=== PATIENT | female | born 1990 | race Caucasian/White ===

== ENCOUNTER 2024-06-09 11:04 | Emergency (ER) | payer OTHER, MEDICAID, SELFPAY ==
--- NOTE | ~2024-06-09 | CT_ITS ---
CLINICAL HISTORY: Fall from 3 steps, pain right lateral neck CT cervical spine without contrast Comparison: None Findings: Cervical spine straightening. Normal alignment without acute fracture. Mild right maxillary sinus mucosal thickening. Unremarkable visualized brain and neck soft tissues. IMPRESSION: No acute fracture. This document has been electronically signed by: Skye Ospina MD on 06/09/2024 13:03:01
--- NOTE | ~2024-06-09 | XR_ITS ---
CLINICAL HISTORY: fall, pain 3 view, pelvis and left hip Comparison: None Findings: The bones are intact. No significant arthritic change. The soft tissues are unremarkable. IMPRESSION: No acute findings. This document has been electronically signed by: Skye Ospina MD on 06/09/2024 13:06:46
--- NOTE | ~2024-06-09 | XR_ITS ---
CLINICAL HISTORY: fall, pain 3 view right shoulder Comparison: None Findings: Bones intact. No dislocations. No significant loss of joint space or osteophytes. No erosions. No radiopaque foreign body. IMPRESSION: 1. No acute findings This document has been electronically signed by: Skye Ospina MD on 06/09/2024 13:05:39
--- NOTE | 2024-06-09 11:21 | ED_ITS ---
HPI - General Adult General Chief complaint: Fall Stated complaint: work inj, shoulder pain Time Seen by Provider: 06/09/24 14:13 History of Present Illness HPI narrative: Patient complains of pain in right shoulder as well as left gluteal area after a fall at work yesterday She was standing on the 3rd rung of a ladder and fell over landing on her right shoulder, and hit her left gluteal area on a shelf There is some paresthesia or tingling radiating down the right arm from the shou lder, but no loss of muscle strength no loss of sensation She has no head injury no headache, she was not dizzy before the fall, she has no chest pain no abdominal pain no numbness or weakness, no changes to bowel or bladder no incontinence no dysuria Related Data Previous Rx's ?Medication ?Instructions ?Recorded acetaminophen 500 mg tablet 1,000 mg (2 x 500 mg) PO QID PRN 06/09/24 pain #30 tabs ibuprofen 600 mg tablet 600 mg PO Q6H pain #20 tabs 06/09/24 Allergies Allergy/AdvReac Type Severity Reaction Status Date / Time No Known Allergies Allergy Verified 06/09/24 11:23 [facility] Past Medical History Source: nursing notes reviewed Social History Social History Advance Directives: No Advance Directives Information Provided: No Physical Exam ED Vital Signs: Vital Signs - 24 hr 06/09/24 11:22 Pulse Rate 83 Respiratory Rate 18 Blood Pressure 143/79 H Pulse Oximetry 97 Oxygen Delivery Method Room Air BMI result Body Mass Index 40.6 General appearance comfortable no distress Head is normocephalic atraumatic No evidence of any trauma to the face no raccoon eyes no cheng sign The neck had right sided tenderness on the lateral neck as well as the trapezius, there was no midline tenderness, range of motion in the neck was good Clear to auscultation bilateral, no pain with a deep breath, no tenderness to ribs or sternum, no bruising or haile on the chest wall Abdomen soft nontender Extremities the right shoulder is held in internal rotation and has limited external rotation limited abduction and limited extension limited by pain, no deformity or swelling, neurovascular intact distal The rest of the right arm exam is normal with normal pulse and normal sensation in the fingers good movement in elbow and wrist and hand The back exam there is left gluteal tenderness, there is no focal bony tenderness in the back of the lower or upper Left hip has full range of motion and no tenderness over the hip or pelvis Neuro motor is 5/5 x4, sensation is intact and symmetrical distal extremities, interaction comprehension expression all normal Course Course Course Narrative: This is an RME performed by Alexi Beck CNP: Additional HPI, ROS, PE not included below will be deferred to primary provider. Patient is a 34-year-old female who presents emergency department for evaluation of a work-related injury. She was working yesterday at [employer], she was standing 3 steps up on a ladder, she fell landing onto her right shoulder on the floor resulting in pain to the right lateral neck and right shoulder, her left hip hit a shelf near the floor resulting in pain when she is flexing the hip. Denies head strike or loss of consciousness. Denies anticoagulants Plan: CT cervical spine, XR right shoulder, XR left hip Patient with work-related slip and fall down several rungs of the ladder onto the floor with right shoulder and left gluteal pain CT scan of cervical spine was negative for acute fracture, x-rays of left hip and pelvis negative for fracture, x-rays right shoulder negative for fracture Right shoulder did have limited range of motion as well as diffuse tenderness so she likely sprained her shoulder and is advised that she may need orthopedic follow-up Left gluteal area is likely just mild muscle injury from hitting it on the shelf, she had full range of motion in the hip and leg on the left side and ambulates easily She will be referred to work connection for work related injury of right shoulder and left gluteal area and patient is disc Medical Decision Making Lab Data Labs: Lab Results 06/09/24 Range/Units 11:34 Urine Test NEGATIVE (NEGATIVE) Discharge Plan Discharge Clinical Impression: Sprain of right shoulder, Muscle strain Patient Disposition: Home, Self-Care Additional Instructions: Follow with work connection for clearance to return to work for full duty, as well as further evaluation of right shoulder injury You can use Tylenol or Motrin for pain Return to the ER any time any worse condition or any concerns Prescriptions: New acetaminophen 500 mg tablet 1,000 mg PO QID PRN (Reason: pain) Qty: 30 0RF ibuprofen 600 mg tablet 600 mg PO Q6H Qty: 20 0RF Referrals: [facility] [Provider Group] ( employee fell off ladder injuring right shoulder and left hip area) Stand Alone Forms: Work/School Release Print Language: Amharic
[2024-06-09 11:22] VITALS: BP 143/79; PULSE 83; RESP 18; O2SAT 97; BMI 40.6
[2024-06-09 11:41] LABS: UPreg QC Valid YES; Urine Pregnancy NEGATIVE (NEGATIVE)
[2024-06-09 17:36] VITALS: BP 143/79; PULSE 83; RESP 18; TEMP -17.7; TEMP 0; O2SAT 97
== END 2024-06-09 17:36 | disposition home or self-care (01) ==
PROVIDERS: Nurse Practitioner Family; Emergency Provider Emergency Medicine; PCP Internal Medicine
DX: S43.401A Unspecified sprain of right shoulder joint, initial encounter (principal); M25.511 Pain in right shoulder; R10.2 Pelvic and perineal pain; M54.2 Cervicalgia; W11.XXXA Fall on and from ladder, initial encounter; Y93.9 Activity, unspecified; Y92.9 Unspecified place or not applicable; Y99.0 Civilian activity done for income or pay
CPT/HCPCS: 72125; 73030; 73502; 81025; 99282; 99284

== ENCOUNTER → 2024-06-09 11:26 | Outpatient (BNV) | payer MEDICAID, SELFPAY | PROVIDERS: Visit Provider Radiology Diagnostic Radiology | DX: M54.2 Cervicalgia (principal); M25.552 Pain in left hip; R10.2 Pelvic and perineal pain; M25.511 Pain in right shoulder; W10.8XXA Fall (on) (from) other stairs and steps, initial encounter | CPT/HCPCS: 72125; 73030; 73502 ==

== ENCOUNTER → 2024-06-14 13:31 | Outpatient (BNVA) | payer OTHER, SELFPAY | PROVIDERS: PCP Internal Medicine; Visit Provider Physician Assistant | DX: Z09 Encounter for follow-up examination after completed treatment for conditions other than malignant neoplasm (principal); M54.2 Cervicalgia; S43.51XA Sprain of right acromioclavicular joint, initial encounter; W11.XXXA Fall on and from ladder, initial encounter; M25.552 Pain in left hip | CPT/HCPCS: 99204 ==

== ENCOUNTER → 2024-06-21 09:59 | Outpatient (BNVA) | payer OTHER, SELFPAY | PROVIDERS: PCP Internal Medicine; Visit Provider Physician Assistant | DX: M54.2 Cervicalgia (principal); S43.51XD Sprain of right acromioclavicular joint, subsequent encounter; W11.XXXD Fall on and from ladder, subsequent encounter; M25.552 Pain in left hip | CPT/HCPCS: 99214 ==

== ENCOUNTER → 2024-07-04 09:32 | Outpatient (BNVA) | payer OTHER, SELFPAY | PROVIDERS: PCP Internal Medicine; Visit Provider Physician Assistant | DX: M54.2 Cervicalgia (principal); S43.51XD Sprain of right acromioclavicular joint, subsequent encounter; W11.XXXD Fall on and from ladder, subsequent encounter | CPT/HCPCS: 99214 ==

== ENCOUNTER 2024-07-17 11:03 | Outpatient (RCR) | payer OTHER, SELFPAY ==
--- NOTE | 2024-06-19 15:48 | MHC.PT.EP ---
[facility] [place] Office [place] Office [place] Office [address] Toma Leyva [address] [phone] F: [phone] F: [phone] F: [phone] F: [phone] Physical Therapy Plan of Care Date of Evaluation: 06/19/24 Date of Surgery: n/a Diagnosis: cervicalgia and R shoulder pain Assessment: Pt is a 34 yo F who has acute neck and R shoulder pain s/p a fall from a ladder at work, patient has no acute fractures. Patient works at [employer], lives with and 2 children, and was independent with all ADLs. Patient is now unable to perform window assembler, sleep comfortably, nor don/doff clothes due to increased pain. Since mechanical fall 06/08/24, patient has not returned to work. Patient has decreased ROM, decreased shoulder and medical supervisor strength, mild swelling, increased pain intensity, and poor posture awareness. Patient is a good candidate for physical therapy due to PLOF, age, and no comorbidities. Patient will benefit from physical therapy 2x a week for 4 weeks to focus on gentle ROM, shoulder/periscapular strengthening, education regarding body mechanics and postural awareness. Therapy may include strengthening, mobility, taping, STM/IASTM, and modalities as needed. Frequency and Duration: The patient will be seen 2x / 4 week Short Term Goals: Pt will be Independent with HEP Pt will have improved R medical supervisor strength R=L Pt will be able to have increased R shoulder abd and flexion AROM with decreased pain to at least 90* Pt will have increased cervical flexion by at least 20 degrees Track Repairer Goals: Pt will demonstrate statistically significant improved function demonstrated by an increase score of the NDI by at least 6 points Pt will demonstrate proper body mechanics and reduced pain to be able to sleep through the night without waking Pt will demonstrate full shoulder ROM and strength to perform cooking and cleaning Pt will demonstrate full cervical ROM to 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 Manual therapy to restore motion and function. Therapeutic exercise to improve strength and flexibility. Neuromuscular re-education for posture and balance. Therapeutic activities to return to functional activities of daily living. Electronically signed by: Zahra Franco, PT, DPT Please sign and return to therapist. Thank you for your referral.
--- NOTE | 2024-09-05 11:25 | MHC.PT.DC ---
[facility] [place] Office [place] Office [place] Office [address] Toma Leyva [address] [phone] F: [phone] F: [phone] F: [phone] F: [phone] Physical Therapy Discharge Report Diagnosis: cervicalgia and R shoulder pain Date of Surgery: DOI 06/08/24 Date of Evaluation: 06/19/24 Date of Discharge: 09/05/24 Treatments to Date: 8 Cancellations to Date: 4 No Shows to Date: 1 Discharge Status: Visit Non-compliance Discharge Summary: Pt was seen for skilled PT from 06/19/24-07/17/24. Her last attended appointment was 07/17/24. She had 1 no show and 3 cancellations for her last 4 scheduled appointments. She is being D/C from skilled PT as she hasn't attended or called to reschedule in > 30 days. Pt current level of function unknown at this time Electronically signed by: Zahra Franco, PT, DPT Please sign and return to therapist. Thank you for your referral.
== END 2024-09-05 11:25 | disposition home or self-care (01) ==
LOC: HO.PT 11:03
PROVIDERS: PCP Internal Medicine; Visit Provider Physician Assistant
DX: M54.2 Cervicalgia (principal); M25.511 Pain in right shoulder
CPT/HCPCS: 97110; 97140; 97162

== ENCOUNTER → 2024-07-19 10:01 | Outpatient (BNVA) | payer OTHER, SELFPAY | PROVIDERS: PCP Internal Medicine; Visit Provider Physician Assistant | DX: M54.2 Cervicalgia (principal); S43.51XD Sprain of right acromioclavicular joint, subsequent encounter; W11.XXXD Fall on and from ladder, subsequent encounter | CPT/HCPCS: 99213 ==

== ENCOUNTER → 2024-08-02 14:27 | Outpatient (BNVA) | payer OTHER, SELFPAY | PROVIDERS: PCP Internal Medicine; Visit Provider Physician Assistant | DX: M54.2 Cervicalgia (principal); S43.51XD Sprain of right acromioclavicular joint, subsequent encounter; W11.XXXD Fall on and from ladder, subsequent encounter | CPT/HCPCS: 99214 ==

== ENCOUNTER → 2024-08-21 11:01 | Outpatient (BNVA) | payer OTHER, SELFPAY | PROVIDERS: PCP Internal Medicine; Visit Provider Physician Assistant | DX: M54.2 Cervicalgia (principal); S43.51XD Sprain of right acromioclavicular joint, subsequent encounter; W11.XXXD Fall on and from ladder, subsequent encounter | CPT/HCPCS: 99213 ==

== ENCOUNTER 2024-08-21 19:22 | Outpatient (REF) | payer OTHER, SELFPAY ==
--- NOTE | ~2024-08-21 | MR_ITS ---
EXAMINATION: MR SHOULDER, RIGHT CLINICAL INFORMATION: Weakness, rule out rotator cuff tearing. Patient states work injury 06/08/2024 with decreased range of motion. COMPARISON: No prior MRI. Right shoulder radiographs 06/09/2024. TECHNIQUE: Multiplanar multisequence MR imaging of the right shoulder was done without IV contrast. Examination performed on a 1.5 Sandra Siemens unit utilizing standard sequences. FINDINGS: There is mild to moderate motion degradation on multiple pulsing sequences, limiting the sensitivity of the examination. Rotator Cuff and Biceps Tendon: Supraspinatus: There is no discrete tear within the confines of mild motion artifact. There is no tendinous retraction or evidence of full-thickness tear. Insertional aspect of the tendon appears intact. Normal-appearing muscle belly. Infraspinatus: There is a subtle increase focus of T2 signal within the myotendinous junction, suggestive of a mild myotendinous injury (series 14, image 13). Tendon is otherwise grossly intact and normal in signal. Normal muscle belly. Subscapularis: Within confines of motion, tendon appears intact without discrete tear. Normal muscle belly. Teres Minor: Intact and normal in signal. Normal muscle belly. Biceps Long Head: Normally located within the bicipital groove with normal morphology. The tendon within the rotator interval is difficult to assess due to motion and obliquity although appears grossly normal. The biceps anchor appears intact. AC Joint and Acromiohumeral Arch: The AC joint is intact without significant spurring. There is a type II acromion present. There is no supraspinatus outlet stenosis. Glenohumeral Joint and Labrum: There is normal joint fluid within the glenohumeral joint. There are no full-thickness cartilaginous defects within the confines of mild motion artifact. There is normal alignment without significant degenerative arthritis. The labrum appears grossly intact without displaced tear. Osseous Structures: Normal in signal. There is no bone marrow edema to suggest contusion or fracture. There is no abnormal infiltrating signal. Spino-glenoid Notch: Normal. Quadrilateral Space: Normal. Other: Mildly increased signal throughout the subacromial/subdeltoid bursa with a trace amount of fluid, consistent with mild to moderate bursitis. The glenohumeral ligaments appear intact without definite thickening. MR/MR shoulder RT wo con IMPRESSION: 1. Exam somewhat limited by motion artifact on several pulsing sequences. This limits the sensitivity of the examination. 2. Suspect a subtle, mild focal myotendinous injury of the infraspinatus tendon. Rotator cuff tendons are otherwise grossly intact without significant tearing, tendinosis, or tendinous retraction. 3. Grossly normal-appearing AC joint and glenohumeral joint. No definite labral tearing. 4. Mild to moderate subacromial/subdeltoid bursitis. Electronically signed by: Arley Membreno MD 08/22/2024 08:58 AM EDT
== END 2024-08-21 19:23 | disposition home or self-care (01) ==
LOC: HO.MRI 19:22
PROVIDERS: PCP Internal Medicine; Visit Provider Internal Medicine
DX: M25.511 Pain in right shoulder (principal)
CPT/HCPCS: 73221

== ENCOUNTER → 2024-08-21 19:31 | Outpatient (BNV) | payer OTHER, SELFPAY | PROVIDERS: PCP Internal Medicine; Visit Provider Radiology Diagnostic Radiology | DX: M75.01 Adhesive capsulitis of right shoulder (principal) | CPT/HCPCS: 73221 ==

== ENCOUNTER → 2024-08-30 14:19 | Outpatient (BNVA) | payer OTHER, SELFPAY | PROVIDERS: PCP Internal Medicine; Visit Provider Physician Assistant | DX: S43.51XD Sprain of right acromioclavicular joint, subsequent encounter (principal); W11.XXXD Fall on and from ladder, subsequent encounter; M54.2 Cervicalgia | CPT/HCPCS: 99213 ==

== ENCOUNTER → 2024-09-18 14:37 | Outpatient (BNVA) | payer OTHER, SELFPAY | PROVIDERS: Visit Provider Physician Assistant | DX: M75.51 Bursitis of right shoulder (principal); M25.552 Pain in left hip; M54.50 Low back pain, unspecified | CPT/HCPCS: 99213 ==

== ENCOUNTER 2024-09-30 08:31 | Outpatient (AMB) | payer OTHER, SELFPAY ==
--- NOTE | 2024-09-30 08:34 | MHC.OFFVIS ---
Vital Signs 09/30/24 08:36 Height 5 ft 2 in Weight 222 lb BMI 40.6 Intake Visit Reasons: [employer] WC-R shlder injury DOI 06/08/24 Intake Note: Tamika is a 34 year old right hand dominant female who presents as a new patient for a workers comp injury to her right shoulder, DOI 06/08/24. Patient was seen at work connection status post fall at work. She mentions that she slipped on the 3 step and landed on her shoulder. She attended physical therapy with helped however she continues to have ongoing pain. MRI was obtained. Patient reports she is still having pain when she is doing overhead reaching. Her pain and swelling is on the anterior aspect of the shoulder. Patient mentions that she is also having numbness in both hands mainly in the right hand. IMPRESSION: 1. Exam somewhat limited by motion artifact on several pulsing sequences. This limits the sensitivity of the examination. 2. Suspect a subtle, mild focal myotendinous injury of the infraspinatus tendon. Rotator cuff tendons are otherwise grossly intact without significant tearing, tendinosis, or tendinous retraction. 3. Grossly normal-appearing AC joint and glenohumeral joint. No definite labral tearing. 4. Mild to moderate subacromial/subdeltoid bursitis. Molten Iron Pourer Required: Yes Molten Iron Pourer Language: Securities Broker Services: Molten Iron Pourer Present (Ct([id number])) Allergies No Known Allergies Allergy (Verified 09/30/24 08:39) HPI HPI [employer] WC-R shlder injury DOI 06/08/24: Details: 34 year old right hand dominant female who presents as a new patient for a workers comp injury to her right shoulder, DOI 06/08/24. Patient was seen at work connection status post fall at work. She works at a retail store and works stocking shelves. She states she was on a ladder and slipped off the 3rd step and landed on her right shoulder. She states a day after the incident, she was seen in the ED, xrays obtained which were negative for fracture. She was seen at the Work connection who referred her to PT. She states PT has helped with her ROM and strength however she continues to have ongoing pain with reaching overhead, pain that extends from her neck into her shoulder, and reaching behind her back. She was given some work restrictions from the work connection however this has caused her to lose significant amount of hours at work. [facility] Social History (Updated 09/30/24 @ 08:41 by Amrik Norman) Alcohol intake: never Patient Tobacco Use Status: Never used Tobacco Current occupational status: employed Current occupation: [employer]/ right hand dominant Review of Systems Const All systems reviewed & are unremarkable except as noted in HPI and below Physical Exam Vital Signs: BMI result Body Mass Index 40.6 Const General: cooperative and no acute distress Orientation/consciousness: patient oriented x3 Resp Effort & Inspection: normal respiratory effort and able to speak in complete sentences Cardio Peripheral pulses: Peripheral pulses 2+ throughout Neuro General: patient oriented x3 Extrem Other: Right shoulder normal to inspection she has protraction of the right scapula. Full range of motion in all planes. Significant tenderness over the right trapezium muscle into the right side of her neck. Tenderness over the proximal biceps tendon with a positive [place]'s. 5/5 rotator cuff strength. Neurovascularly intact. Office Procedures AMB Joint Injection/Aspiration Joint Injection/Aspiration Primary Site: right shoulder Prep: site was prepped using aseptic technique, ethochloride spray was applied and injection warnings given Injected: 80 mg of, DepoMedrol, with 8 mL of, 1% plain lidocaine and in the subcromial space Approach Used: posterolateral Procedure: The patient tolerated the procedure well and there was some relief with the local anesthesia Coding 79579 - Glenohumeral/Tronchanteric Bursa/Intraarticular Procedure code (CPT) selection complete Results Reviewed Results Reviewed: X-rays of the right shoulder obtained in the emergency department are negative for any acute or chronic abnormalities. MRI right shoulder IMPRESSION: 1. Exam somewhat limited by motion artifact on several pulsing sequences. This limits the sensitivity of the examination. 2. Suspect a subtle, mild focal myotendinous injury of the infraspinatus tendon. Rotator cuff tendons are otherwise grossly intact without significant tearing, tendinosis, or tendinous retraction. 3. Grossly normal-appearing AC joint and glenohumeral joint. No definite labral tearing. 4. Mild to moderate subacromial/subdeltoid bursitis. Assessment & Plan Assessment & Plan (1) Bursitis of right shoulder: Code(s): M75.51 - Bursitis of right shoulder Category: Medical (2) Strain of right trapezius muscle: Code(s): S46.811A - Strain of other muscles, fascia and tendons at shoulder and upper arm level, right arm, initial encounter Category: Medical Plan I discussed with the patient the extent of her injury which has continued to limit her ability to perform normal work functions and also daily activities at home. We discussed options which include continued physical therapy and I did place a new order for this today to work on range of motion periscapular stabilization rotator cuff strengthening and cervical range of motion/stabilization. The extent of her injury has caused her to alter her mechanics causing discomfort not only in the shoulder but extending down the arm. I did recommend a steroid injection to help with her discomfort which she did consent to today. Right shoulder steroid injection performed today which she tolerated well. I did put in place work limitations. She should refrain from overhead reaching activities. She should perform no pushing pulling or carrying greater than 5 lb until I see her back in 6 weeks for re-evaluation, sooner if needed. Orders: Orders PT Evaluation and Treatment Today M75.51 - Bursitis of right shoulder, S46.811A - Strain of other muscles, fascia and tendons at shoulder and upper arm level, right arm, initial encounter Coding Level of Care Code New Pt Level 3 (97986) Complex EM visit Add On G2211 Diagnoses Bursitis of right shoulder M75.51 Strain of right trapezius muscle S46.811A CPT Codes Coding - Joint 7: 92073 - Glenohumeral/Tronchanteric Bursa/Intraarticular ([id number])
[2024-09-30 08:36] VITALS: BMI 40.6
--- OUTSIDE RECORDS SUMMARY | 2024-09-30 08:57 | XMS_ITS | Clinical Summary ---
Author Organization [facility] Address [address] [place] [address] Care Team Providers Care Enzyme Chemist Name Role Phone Petr Sloan MD Primary Care Provider Source Comments PLEASE NOTE, if this patient is a minor, it may be UNLAWFUL to discuss sensitive information that is contained in these records (such as FAMILY PLANNING, MENTAL HEALTH or SUBSTANCE ABUSE) with the minor patient's parent or other person without the patient's specific authorization.[facility] Allergies No known active allergies Medications fluticasone (FLONASE) 50 mcg/actuation nasal spray Place 2 Sprays in both nostrils once daily 16 g 1 4 Active white petrolatum-min eral oiL cream Apply topically as needed for dry skin 198 g 1 4 Active naproxen (NAPROSYN) 250 mg tablet Take 250 mg by mouth 2 (two) times daily with a meal. 5 Active lidocaine (LIDODERM) 5 % patch APPLY 2 PATCHES TOPICALLY DAILY FOR CERVICALGIA LEAVE ON MOST PAINFUL AREA FOR UP TO 12 HRS 5 Active benzonatate (TESSALON) 200 mg capsule Take 1 Capsule by mouth 3 (three) times daily as needed for cough for up to 20 days 30 Capsule 1 4 09/19/19 25 Discontin ued(Cance lled) naproxen (NAPROSYN) 500 mg tablet Take 1 Tablet by mouth 2 (two) times daily with a meal 60 Tablet 4 09/19/19 25 Discontin ued(Cance lled) Active Problems Problem Noted Date Diagnosed Date Prediabetes 09/28/2023 Class 3 severe obesity due t o excess calories without serious comorbidity with body mass index (BMI) of 45.0 to 49.9 in adult 09/27/2023 Non-seasonal allergic rhinitis due to fungal spo res 09/27/2023 Encounters Date Type Department Care Team Description 09/18/2024 4:00 PM EDT Office Visit [address] [phone] Petr Sloan MD Zayas, Juan Routine general medical examination at a health care facility (Primary Dx); Chronic right shoulder pain; Class 3 severe obesity due to excess calories without serious comorbidity with body mass index (BMI) of 45.0 to 49.9 in adult; Non-seasonal allergic rhinitis due to fungal spores; Poor vision from Last 3 Months Immunizations Immunization Administration Dates Next Due COVID-19,SARS-COV-2 VACCINE, UNSPECIFIED (US Admin) 08/22/2021,01/20/2021,12/11/2020 HEP A-HEP B ([facility]) 09/18/2024 HEP B, PED/ADOL 06/16/2023 Hep B,adult,adjuvanted (HEPLISAV) 2023,09/27/2023(Deferred: Out of Stock) IPV (IPOL) 11/08/2023,09/27/2023 MMR (MMR II/Priorix) 06/16/2023 Pfizer COVID-19 (Comirnaty), Mrna, Lnp-s, Pf, Justino-sucrose, 30 Mcg/0.3 Ml, 12yr+ 09/27/2023 TDAP 11/08/2023,09/27/2023 Social History Tobacco Use Types Packs/Day Years Used Date Smoking Tobacco: Never Smokeless Tobacco: Never Tobacco Cessation:Counseling Given: Not Answered Alcohol Use Standard Drinks/Week Comments Never 0 (1 standard drink = 0.6 oz pur e alcohol) Social Connections Answer Date Recorded Connectedness 1 09/27/2023 Financial Resource Strain Answer Date R ecorded Financial Resource Strain 1 2023 Stress Answer Date Recorded Stress 1 09/27/2023 Physical Activity Answer Date Recorded Physical Activity 0 09/21/2023 Food Insecurity Answer Date Recorded Food 1 09/27/2023 Transportation Needs Answer Date Record ed Transportation 1 09/27/2023 Housing Stability Answer Date Recorded Housing 2 09/27/2023 Safety and Environment Answer Date Santosh rded Safety 1 09/27/2023 Utilities Answer Date Recorded Utilities 1 09/27/2023 Employment Answer Date Recorded Employment 0 09/21/2023 Comments No Sex and Gender Information Value Date Recorded Sex Assigned at Female 09/27/2023 11:21 AM PDT Legal Sex Female 10:09 AM PDT Gender Identity Female 09/27/2023 11:21 AM PDT Sexual Orientation Straight 09/27/2023 11 :21 AM PDT Last Filed Vital Signs Vital Sign Reading Time Taken Comments Blood Pressure 126/68 09/18/2024 3:56 PM EDT Pulse 87 09/18/2024 3:56 PM EDT Temperature 36.7 ??C (98.1 ??F) 09/18/2024 3:56 PM ED T Respiratory Rate 18 09/18/2024 3:56 PM EDT Oxygen Saturation 97% 09/18/2024 3:56 PM EDT Inhaled Oxygen Concentration - - Weight 104.6 kg (230 lb 9.6 oz) 09/18/2024 3:56 PM EDT Height 148.5 cm (4' 10.47 ) 09/18/2024 3:56 PM E DT Body Mass Index 47.42 09/18/2024 3:56 PM EDT Plan of Treatment Health Maintenance Due Date Last Done Comments HPV Screening 1991 Lipid Screening 1991 Pap Smear 2012 [id number] ( season) 2023 09/27/2023, 08/22/2021, 01/20/2021, Additional history exists Diabetes Screening 09/26/2024 09/27/2023, 09/27/2023 LTBI Screening (#1) 09/26/2024 09/27/2023 Relationship Safety Screening/Counseling 09/26/2024 09/27/2023 Imm-Hepatitis A (2 of 3 - He p A Twinrix risk 3-dose series) 10/16/2024 09/18/2024 Imm-Hepatitis B (3 of 3 - 19 + 3-dose series) 11/13/2024 09/18/2024, 11/08/2023, 06/16/2023 Imm-Influenza (Season Ended) 2024 Annual Wellness (Adult): Indicated (All Coverage) 09/18/2025 09/18/2024 Anxiety Screening 09/18/2025 09/18/2024 Hypertension Screening (#1) 09/18/2025 Tobacco Screening 09/18/2025 09/18/2024 Cervical Cancer Screening 09/18/2028 Pap + HPV 09/18/2028 09/19/2023 Imm-DTaP/Tdap/Td (3 - Td or Tdap) 11/07/2033 024, 09/27/2023 HIV Screening Completed 09/27/2023 Hepatitis C Screening Completed 09/27/2023 Alcohol and Drug Screen Completed 09/18/2024, 09/26 Depression Annual Screen Completed 09/18/2024 Cervical Ablation/Cold-Knife Conization Discontinued Cervical Cryotherapy Discontinued Colposcopy Discontinued Endometrial Biopsy Discontinued Excision/Leep Discontinued HPV Genotyping Discontinued Vaginal Pap Discontinued Vulvoscopy Discontinued Procedures Procedure Name Priority Date/Time Associated Diagnosis Comments IMAGING SCANNED DOCUMENT 08/21/2024 3:00 AM EDT IMAGING SCANNED DOCUMENT 08/21/2024 3:00 AM EDT HIV 1/2 AG & AB W/RFLX (4TH GEN) Routine 09/27/2023 3:00 PM EDT Refugee health examination QUANTIFERON-TB GOLD PLUS Routine 09/27/2023 3:00 PM EDT Refugee health examination HEPATITIS C AB W/RFLX HCV RNA, QT, RT PCR Routine 09/27/2023 3:00 PM EDT Refugee health examination COMPREHENSIVE METABOLIC PANEL Routine 09/27/2023 3:00 PM EDT Refugee health examination from Last 3 Months or Most Recently Relevant to Health Maintenance Results * IMAGING SCANNED DOCUMENT (08/21/2024 3:00 AM EDT) Only the most recent of2 resultswithin the time period is included. 08/21/2024 3:00 AM EDT us Petr Sloan MD SCAN IMAGING Final Result * QUANTIFERON-TB GOLD PLUS (09/27/2023 3:00 PM EDT) QUANTIFERON NEGATIVE NEGATIVE [facility] Comment: Negative test result. M. tuberculosis complex infection unlikely. NIL 0.03 IU/mL [facility] MITOGEN-NIL >10.00 IU/mL [facility] [place] [employer] TB1-NIL 0.00 IU/mL [facility] [place] [employer] TB2-NIL 0.01 IU/mL [employer] [facility] Comment: The Nil tube value reflects the background interferon gamma immune response of the patient's blood sample. This value has been subtracted from the patient's displayed TB and Mitogen results. Lower than expected results with the Mitogen tube prevent false-negative Quantiferon readings by detecting a patient with a potential immune suppressive condition and/or suboptimal pre-analytical specimen handling. The TB1 Antigen tube is coated with the M. tuberculosis-specific antigens designed to elicit responses from TB antigen primed CD4+ helper T-lymphocytes. The TB2 Antigen tube is coated with the M. tuberculosis-specific antigens designed to elicit responses from TB antigen primed CD4+ helper and CD8+ cytotoxic T-lymphocytes. For additional information, please refer to https://education.WorkTouch/faq/LWL384 (This link is being provided for informational/ educational purposes only.) Blood Blood / Unknown 09/27/2023 3 :00 PM EDT 09/27/2023 3:00 PM EDT Narrative [employer] [facility] - 10/01/2023 4:53 PM EDT COLLECTION KIT GIVEN TO PATIENT. PATIENT ADVISED TO RETURN. us Petr Sloan MD LAB - BLOOD DRAW Final Resul t [employer] [address] [address], [employer] [address] [address] * HEPATITIS C AB W/RFLX HCV RNA, QT, RT PCR (09/27/2023 3:00 PM EDT) HEPATITIS C ANTIBODY NON-REACT GAMAL NON-REACT GAMAL [facility] Comment: HCV antibody was non-reactive. There is no laboratory evidence of HCV infection. In most cases, no further action is required. However, if recent HCV exposure is suspected, a test for HCV RNA (test code 09495) is suggested. For additional information please refer to http://NileGuide.WorkTouch/faq/VOK81r2 (This link is being provided for informational/ educational purposes only.) Blood Blood / Unknown 09/27/2023 3 :00 PM EDT 09/27/2023 3:00 PM EDT Narrative [facility] - 10/01/2023 4:53 PM EDT COLLECTION KIT GIVEN TO PATIENT. PATIENT ADVISED TO RETURN. Petr Sloan MD LAB - BLOOD DRAW Edited Resu lt - Final [employer] [address] [place] [id number], [facility] [address] [place] [id number] * HIV 1/2 AG & AB W/RFLX (4TH GEN) (09/27/2023 3:00 PM EDT) Pathologist [facility] HIV AG/AB, 4TH GEN NON-REAC TIVE NON-REAC TIVE [facility] Comment: HIV-1 antigen and HIV-1/HIV-2 antibodies were not detected. There is no laboratory evidence of HIV infection. PLEASE NOTE: This information has been disclosed to you from records whose confidentiality may be protected by state law. ??If your state requires such protection, then the state law prohibits you from making any further disclosure of the information without the specific written consent of the person to whom it pertains, or as otherwise permitted by law. A general authorization for the release of medical or other information is NOT sufficient for this purpose. ?? For additional information please refer to http://NileGuide.WorkTouch/faq/PFM987 (This link is being provided for informational/ educational purposes only.) The performance of this assay has not been clinically validated in patients less than 2 years old. Blood Blood / Unknown 09/27/2023 3 :00 PM EDT 09/27/2023 3:00 PM EDT Narrative [employer] [facility] - 10/01/2023 4:53 PM EDT COLLECTION KIT GIVEN TO PATIENT. PATIENT ADVISED TO RETURN. us Petr Sloan MD LAB - BLOOD DRAW Final Resul t [employer] [address] [address], [facility] [address] [place] [address] * COMPREHENSIVE METABOLIC PANEL (09/27/2023 3:00 PM EDT) GLUCOSE 96 65 - 99 mg/dL [employer] [facility] Comment: ?Fasting reference interval UREA NITROGEN (BUN) 12 7 - 25 mg/dL [employer] [facility] CREATININE (blood) 0.61 0.50 - 0.97 mg/dL [facility] EGFR 122 > OR = 60 mL/min/1. 73m2 [employer] [facility] BUN/CREATININE RATIO SEE NOTE: [employer] [facility] Comment: ?? Not Reported: BUN and Creatinine are within ?? reference range. ? SODIUM 136 135 - 146 mmol/L [facility] POTASSIUM 4.0 3.5 - 5.3 mmol/L [facility] CHLORIDE 102 98 - 110 mmol/L [employer] [facility] CARBON DIOXIDE 25 20 - 32 mmol/L [facility] CALCIUM 9.2 8.6 - 10.2 mg/dL [employer] [facility] PROTEIN, TOTAL 7.9 6.1 - 8.1 g/dL [facility] ALBUMIN 4.3 3.6 - 5.1 g/dL [facility] GLOBULIN 3.6 1.9 - 3.7 g/dL (calc) [facility] ALBUMIN/GLOBULI N RATIO 1.2 1.0 - 2.5 (calc) [facility] BILIRUBIN, TOTAL 0.3 0.2 - 1.2 mg/dL [employer] [facility] ALKALINE PHOSPHATASE 99 31 - 125 U/L [employer] [facility] AST 19 10 - 30 U/L [employer] [facility] ALT 24 6 - 29 U/L [facility] Blood Blood / Unknown 09/27/2023 3 :00 PM EDT 09/27/2023 3:00 PM EDT Narrative [facility] - 10/01/2023 4:53 PM EDT COLLECTION KIT GIVEN TO PATIENT. PATIENT ADVISED TO RETURN. us Petr Sloan MD LAB - BLOOD DRAW Edited Resu lt - Final [facility] [address] [address], [facility] [address] [place] [address] from Last 3 Months or Most Recently Relevant to Health Maintenance Insurance [employer] Care Teams Enzyme Chemist Relationship Specialty Start Date End Date Petr Sloan MD [address] [place] [address] PCP - General Internal Medicine 09/27/23
== END 2024-09-30 09:53 | disposition home or self-care (01) ==
LOC: HO.HOS 08:32
PROVIDERS: Visit Provider Physician Assistant
DX: M75.51 Bursitis of right shoulder (principal); S46.811A Strain of other muscles, fascia and tendons at shoulder and upper arm level, right arm, initial encounter
CPT/HCPCS: 20610; 99203

== ENCOUNTER → 2024-09-30 08:31 | Outpatient (BNVA) | payer OTHER, MEDICAID, SELFPAY | PROVIDERS: Visit Provider Physician Assistant | DX: M75.51 Bursitis of right shoulder (principal); S46.811A Strain of other muscles, fascia and tendons at shoulder and upper arm level, right arm, initial encounter | CPT/HCPCS: 20610; 99202; J1010; J2003 ==